=== PATIENT | female | born 1970 | race Caucasian/White ===

== ENCOUNTER 2025-06-20 09:10 | Emergency (ER) | payer OTHER ==
[~2025-06-20] VITALS: Ht 165.1 cm; Wt 85.0 kg
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
[2025-06-20 10:03] VITALS: BP 159/84; PULSE 67; RESP 17; TEMP 98; O2SAT 95
[2025-06-20 10:25] LABS: Urine Protein, UAD Negative (Negative)
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
== END 2025-06-20 11:52 | disposition home or self-care (01) ==
LOC: EDBD 09:10 → ER 09:14 → EDBD 09:14 → ER 11:52
DX: S09.90XA Unspecified injury of head, initial encounter (principal); I10 Essential (primary) hypertension; Z88.2 Allergy status to sulfonamides; V89.2XXA Person injured in unspecified motor-vehicle accident, traffic, initial encounter; Y93.89 Activity, other specified; Y92.410 Unspecified street and highway as the place of occurrence of the external cause; Y99.8 Other external cause status
CPT/HCPCS: 70450; 70486; 81001